=== PATIENT | female | born 1970 | race Caucasian/White ===

== ENCOUNTER 2019-06-30 09:57 | Day surgery (SDC) | payer OTHER ==
[2019-06-27 15:07] VITALS: BMI 26.4
[2019-06-30] MEDS ORDERED: LIDOCAINE HCL/PF 2% SDV 5ML VIAL ONE (12:06)
[2019-06-30 13:16] VITALS: BP 122/74; PULSE 78; TEMP 97.8
--- NOTE | 2019-07-03 14:54 | PATH ---
Surgical Pathology Report Patient Name: TATIANNA GARDINER [facility]. Rec. #: [id number] /Age/Gender: 1970 (Age: 49) / F Account: [id number] Location: [facility] Taken: 06/30/2019 Received: 06/30/2019 Reported: 07/03/2019 Physicians: Fausto Cevallos M.D. Specimen(s) Received A: SECOND PORTION OF DUODENUM B: GASTRIC ANTRUM Clinical History GERD, screening Postoperative diagnosis: Gastritis, normal colon Final Diagnosis A. SECOND PORTION OF DUODENUM, BIOPSY: DUODENAL MUCOSA WITH NO PATHOLOGIC FINDINGS. B. GASTRIC ANTRUM, BIOPSY: MILD CHRONIC GASTRITIS WITH FEATURES OF REACTIVE GASTROPATHY. IMMUNOSTAIN IS NEGATIVE FOR H. PYLORI ORGANISMS. Electronically Signed Estela Ramsey M.D. Gross Description A. Received in formalin, labeled "biopsy second portion of duodenum" are 3 ramirez, irregular portions of soft tissue ranging from 0.1-0.4 cm. in greatest dimension. The specimens are submitted in toto in one cassette. B. Received in formalin, labeled "biopsy gastric antrum" are 2 ramirez, irregular portions of soft tissue averaging 0.3 cm. in greatest dimension. The specimens are submitted in toto in one cassette. 07/01/2019 saudi07/01/2019
== END 2019-06-30 13:10 | disposition home or self-care (01) ==
LOC: FASU-ENDO 09:57
PROVIDERS: ATTEND Internal Medicine Gastroenterology
PROC: 0DB68ZX Excision of Stomach, Via Natural or Artificial Opening Endoscopic, Diagnostic (ICD-10-PCS; 2019-06-30)
PROC: 0DJD8ZZ Inspection of Lower Intestinal Tract, Via Natural or Artificial Opening Endoscopic (ICD-10-PCS; 2019-06-30)
PROC: 0DB98ZX Excision of Duodenum, Via Natural or Artificial Opening Endoscopic, Diagnostic (ICD-10-PCS; principal; 2019-06-30 12:06)
DX: Z12.11 Encounter for screening for malignant neoplasm of colon (principal); K29.50 Unspecified chronic gastritis without bleeding; K31.9 Disease of stomach and duodenum, unspecified

== ENCOUNTER 2020-05-26 13:12 | Emergency (ER) | payer OTHER ==
--- NOTE | 2020-05-26 13:31 | TELE ---
HPI Do you have fever,cough or shortness of breath?: No - General Reason For Visit: COVID History Source: Patient Exam Limitations: No Limitations - History of Present Illness 05/26/20 13:30 50-year-old female no significant past medical history complaining of runny nose and body aches for 3 days. 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 Patient denies chest pain shortness of breath cough. Aside from her current symptoms patient feels well. Past History - Medical History Allergies/Adverse Reactions: Allergies Allergy/AdvReac Type Severity Reaction Status Date / Time latex Allergy Rash Verified 06/27/19 14:58 wheat Allergy Verified 06/30/19 10:20 dairy AdvReac Uncoded 06/27/19 14:59 Home Medications: Ambulatory Orders Pantoprazole Sodium 40 mg PO DAILY 06/27/19 Thyroid,Pork [[place] Thyroid] 90 mg PO DAILY 06/27/19 Anemia: No Asthma: No Cancer: No Cardiac Disorders: No CVA: No COPD: No CHF: No Dementia: No Diabetes: No GI Disorders: Yes (hx of hiatal hernia) Disorders: No HTN: No Hypercholesterolemia: No Liver Disease: No Seizures: No Thyroid Disease: Yes - Surgical History Abdominal Surgery: No Appendectomy: No Cardiac Surgery: No Cholecystectomy: No Lung Surgery: No Neurologic Surgery: No Orthopedic Surgery: Yes (Spinal Fusion 2006) - Psycho-Social/Smoking History Smoking History: Never smoked *Physical Exam - Physical Exam 05/26/20 13:30 Due to patient's inability to video chat patient unable to perform physical exam - Medical Decision Making 05/26/20 13:31 Patient proceed to [place] for [employer] testing Patient given strict return precautions and symptoms worsen Discharge Diagnosis at time of Disposition: COVID-19 - Referrals - Patient Instructions Discharge Instructions: [facility]-Coronavirus Instructions - Discharge Disposition: HOME Condition at time of Disposition: Stable
== END 2020-05-26 13:32 | disposition home or self-care (01) ==
LOC: JVIRT 13:12
DX: Z11.59 Encounter for screening for other viral diseases (principal)
CPT/HCPCS: 99441-95